=== PATIENT | male | born 1950 | race Caucasian/White ===

== ENCOUNTER 2018-01-07 05:08 | Day surgery (SDC) | payer MEDICARE, OTHER ==
[2018-01-07] VITALS (7 sets, daily range): BP systolic 113–153; BP diastolic 68–85; PULSE 57–63; TEMP 97.6–98.3
[~2018-01-07] VITALS: Ht 180.3 cm; Wt 116.2 kg
[2018-01-07] MEDS ORDERED: TORADOL 10MG TA10 MG PO (06:21)
[2018-01-07] MEDS ORDERED: NORCO 325 MG-51 TAB PO (06:21)
[2018-01-07] MEDS ORDERED: ZOFRAN ODT4 MG PO (06:22)
[2018-01-07] MEDS ORDERED: FLOMAX 0.40.4 MG/CAP PO (06:22)
== END 2018-01-07 13:09 | disposition home or self-care (01) ==
LOC: SDCO 05:08
DX: N20.1 Calculus of ureter (principal); I10 Essential (primary) hypertension; G47.33 Obstructive sleep apnea (adult) (pediatric); Z95.0 Presence of cardiac pacemaker
CPT/HCPCS: J0690; J1100; J1885; J1940; J2270; J2405; J2550; J2704; J3010; J7120